=== PATIENT | female | born 1960 | race Hispanic/Latino ===

== ENCOUNTER 2025-03-08 11:00 | Inpatient (IN) | payer MEDICARE ==
[2025-03-08 11:33] VITALS: BMI 25.2
[2025-03-08] MEDS ORDERED: Ondansetron PF 4 MG/2 ML Vial IVP PRN (12:19)
[2025-03-08] MEDS ORDERED: Glucagon 1 MG/ML KIT IM PRN (12:34)
[2025-03-08] MEDS ORDERED: Dextrose 50% Abboject 50 ML SYRINGE SLOW IVP PRN (12:34)
[2025-03-08 13:03] LABS: Anion Gap 10 mmol/L (10-20); BUN (Urea Nitrogen) 18 mg/dL (9.8-20.1); Calc. Creatinine Clearance 75 mL/min (70-130); Calcium 7.8 mg/dL (7.8-10.44); Carbon Dioxide 28 mmol/L (23-31); Chloride 103 mmol/L (98-107); Glucose 249 mg/dL (80-115); Magnesium 2.0 mg/dL (1.6-2.6); Potassium 3.6 mmol/L (3.5-5.1); Sodium 137 mmol/L (136-145)
[2025-03-08 13:19] LABS: #Basophils 0.04 10x3/uL (0.0-0.2); #Eosinophils 0.24 10x3/uL (0.0-0.7); #Monocytes 1.20 10x3/uL (0.11-0.59); #Neutrophils 9.16 10x3/uL (1.40-6.50); %Basophils 0.3 % (0.0-1.0); %Eosinophils 2.0 % (0.0-10.0); %Lymphocytes 9.0 % (21.0-51.0); %Monocytes 10.2 % (0.0-10.0); %Neutrophils 77.7 % (42.0-75.0); Hematocrit 38.6 % (36.0-47.0); Hemoglobin 12.2 g/dL (12.0-16.0); Mean Corpuscular Hemoglobin 29.6 pg (27.0-31.0); Mean Corpuscular Volume 93.7 fL (78.0-98.0); Platelet Count 193 10x3/uL (130-400); Red Blood Cell (RBC) Count 4.12 mill/uL (4.20-5.40); White Blood Cell (WBC) Count 11.79 10x3/uL (4.8-10.8)
[2025-03-08] MEDS: Nitroglycerin 2% Ointment 1 INCH/1 GM Packet TOP SCH (14:43)
[2025-03-08] MEDS ORDERED: HYDROcodone/Acetaminophen 5/325 mg Tablet PO PRN (16:06)
[2025-03-08] MEDS ORDERED: BLOOD SUGAR DIAGNOSTIC MC SCH (16:15)
[2025-03-08] MEDS: HYDROcodone/Acetaminophen 5/325 mg Tablet PO PRN (16:44)
[2025-03-08] MEDS ORDERED: HYDROcodone/Acetaminophen 5/325 mg Tablet PO SCH (21:00)
[2025-03-08] MEDS: glipiZIDE 5 MG TAB PO SCH (23:03)
[2025-03-08] MEDS: Famotidine 20 MG TAB PO SCH (23:04)
[2025-03-08] MEDS: Insulin Glargine 30 UNITS/0.3 ML VIAL SC SCH (23:05)
[2025-03-09 02:39] LABS: Magnesium 1.9 mg/dL (1.6-2.6)
[2025-03-09 05:01] LABS: #Basophils 0.04 10x3/uL (0.0-0.2); #Eosinophils 0.40 10x3/uL (0.0-0.7); #Monocytes 1.03 10x3/uL (0.11-0.59); #Neutrophils 7.25 10x3/uL (1.40-6.50); %Basophils 0.4 % (0.0-1.0); %Eosinophils 3.9 % (0.0-10.0); %Lymphocytes 15.0 % (21.0-51.0); %Monocytes 9.9 % (0.0-10.0); %Neutrophils 69.9 % (42.0-75.0); Hematocrit 37.9 % (36.0-47.0); Hemoglobin 12.0 g/dL (12.0-16.0); Mean Corpuscular Hemoglobin 29.4 pg (27.0-31.0); Mean Corpuscular Volume 92.9 fL (78.0-98.0); Platelet Count 183 10x3/uL (130-400); Red Blood Cell (RBC) Count 4.08 mill/uL (4.20-5.40); White Blood Cell (WBC) Count 10.36 10x3/uL (4.8-10.8)
[2025-03-09 05:34] LABS: Anion Gap 10 mmol/L (10-20); BUN (Urea Nitrogen) 24 mg/dL (9.8-20.1); Calc. Creatinine Clearance 76 mL/min (70-130); Calcium 8.1 mg/dL (7.8-10.44); Carbon Dioxide 29 mmol/L (23-31); Cardiac Risk 2.7 (Less than 4.5); Chloride 103 mmol/L (98-107); Cholesterol 111 mg/dl (< 200 Desired); Glucose 195 mg/dL (80-115); HDL Cholesterol 41 mg/dL (>60 Neg Risk); LDL Cholesterol, Calculated 53 mg/dL; Potassium 3.5 mmol/L (3.5-5.1); Sodium 138 mmol/L (136-145); Triglycerides 86 mg/dL (Less than 150)
[2025-03-09] MEDS: Aspirin 81 mg Enteric Coated Tablet PO SCH (09:25)
[2025-03-09] MEDS: Carvedilol 6.25 MG TAB PO SCH (09:26)
[2025-03-09] MEDS: Enoxaparin 40 MG (0.4 mL) SYRINGE SC SCH (09:26)
[2025-03-09] MEDS: Losartan 25 MG TAB PO SCH (09:26)
[2025-03-09] MEDS: Nitroglycerin 0.4 MG TAB (25 Tab Bottle) SL PRN (12:14)
[2025-03-09] MEDS: Isosorbide Mononitrate 30 MG ER.TAB.S PO SCH (15:34)
[2025-03-09] MEDS ORDERED: dilTIAZem 30 MG TAB PO SCH (18:15)
[2025-03-09] MEDS: Acetaminophen 325 MG TAB PO PRN (21:43)
[2025-03-09] MEDS: dilTIAZem 30 MG TAB PO SCH (21:59)
[2025-03-10 04:02] LABS: #Basophils 0.04 10x3/uL (0.0-0.2); #Eosinophils 0.34 10x3/uL (0.0-0.7); #Monocytes 1.03 10x3/uL (0.11-0.59); #Neutrophils 7.33 10x3/uL (1.40-6.50); %Basophils 0.4 % (0.0-1.0); %Eosinophils 3.3 % (0.0-10.0); %Lymphocytes 13.5 % (21.0-51.0); %Monocytes 10.1 % (0.0-10.0); %Neutrophils 72.0 % (42.0-75.0); Hematocrit 33.7 % (36.0-47.0); Hemoglobin 10.5 g/dL (12.0-16.0); Mean Corpuscular Hemoglobin 29.3 pg (27.0-31.0); Mean Corpuscular Volume 94.1 fL (78.0-98.0); Platelet Count 200 10x3/uL (130-400); Red Blood Cell (RBC) Count 3.58 mill/uL (4.20-5.40); White Blood Cell (WBC) Count 10.19 10x3/uL (4.8-10.8)
[2025-03-10 04:32] LABS: Anion Gap 9 mmol/L (10-20); BUN (Urea Nitrogen) 33 mg/dL (9.8-20.1); Calc. Creatinine Clearance 66 mL/min (70-130); Calcium 7.9 mg/dL (7.8-10.44); Carbon Dioxide 27 mmol/L (23-31); Chloride 104 mmol/L (98-107); Glucose 170 mg/dL (80-115); Potassium 3.7 mmol/L (3.5-5.1); Sodium 136 mmol/L (136-145)
[2025-03-10] MEDS: Isosorbide Mononitrate 30 MG ER.TAB.S PO SCH (09:20)
[2025-03-10 12:27] VITALS: BP 121/64; TEMP 98.7
== END 2025-03-10 17:00 | disposition home or self-care (01) | DRG 281 ==
LOC: UNDOADMOB 11:00 → 2SE 11:00 → OBSVTOIN 03-09 14:22 → INTOOBSV 03-09 14:22 → UNDODISIN 03-10 17:00
PROVIDERS: ADMIT Internal Medicine; ATTEND Internal Medicine
DX: R07.2 Precordial pain (principal); I42.9 Cardiomyopathy, unspecified; I21.A1 Myocardial infarction type 2; E11.9 Type 2 diabetes mellitus without complications; I10 Essential (primary) hypertension; M54.30 Sciatica, unspecified side; R33.9 Retention of urine, unspecified; D72.829 Elevated white blood cell count, unspecified; K59.00 Constipation, unspecified; Z86.16 Personal history of COVID-19; Z88.2 Allergy status to sulfonamides; Z98.890 Other specified postprocedural states; Z87.442 Personal history of urinary calculi; Z90.710 Acquired absence of both cervix and uterus; Z90.49 Acquired absence of other specified parts of digestive tract; Z88.0 Allergy status to penicillin; E04.1 Nontoxic single thyroid nodule
CPT/HCPCS: 36415; 36416; 80048; 80061; 83735; 84443; 84484; 85025; 93005; 93010; 93306; 96372; G0378; J1650; J1815